=== PATIENT | female | born 1985 | race Caucasian/White ===

== ENCOUNTER 2017-08-14 18:02 | Inpatient (IN) | payer BC ==
[~2017-08-14 18:02] MED LIST: Bupivacaine 0.25% HCL 30 ML VIAL ONE
[2017-08-14 18:40] VITALS: BMI 27.1
[2017-08-14] MEDS ORDERED: Promethazine HCl 25 MG/ML VIAL IM PRN (18:59)
[2017-08-14] MEDS ORDERED: Lidocaine 1% (PF) 30 ML VIAL SC PRN (18:59)
[2017-08-14] MEDS ORDERED: Ibuprofen 800 MG TAB PO PRN (18:59)
[2017-08-14] MEDS ORDERED: HYDROcodone/Acetaminophen 5/325 mg Tablet PO PRN ×2 (18:59)
--- NOTE | 2017-08-14 19:02 | PDOC.EVN ---
Event Note - Event Note Event Note: @1900: Asked to put in orders for L&D admit by Dr Resendiz. Sol Resendiz will manage intrapartum care.
[2017-08-14 20:24] LABS: Hematocrit 38.2 % (36.0-47.0); Mean Platelet Volume 9.7 fL (7.4-10.4); Red Blood Cell (RBC) Count 4.25 mill/uL (4.20-5.40); White Blood Cell (WBC) Count 10.5 thou/uL (4.8-10.8)
[2017-08-15] MEDS: Lactated Ringer's 1,000 ML IV SCH ×3 (02:14→13:54)
[2017-08-15] MEDS ORDERED: Fentanyl 4 mcg/Marc 0.1% Cadd 100 ML ONE (02:16)
[2017-08-15] MEDS ORDERED: diphenhydrAMINE 50 MG/ML VIAL IVP PRN (03:04)
[2017-08-15] MEDS ORDERED: ePHEDrine/0.9% NaCl/PF SYRINGE 50 mg/10 ml SLOW IVP PRN (03:04)
[2017-08-15] MEDS ORDERED: Eucerin (Mineral Oil/Petrolatum,White) 30 gm Jar TOP PRN (03:04)
[2017-08-15] MEDS ORDERED: Lactated Ringer's 500 ML IV PRN (03:04)
[2017-08-15] MEDS ORDERED: Ondansetron HCl/PF 4 MG/2 ML Vial IVP PRN ×2 (03:04→15:19)
[2017-08-15] MEDS ORDERED: Naloxone HCl 0.4 mg/ml Vial IVP PRN ×2 (03:04)
[2017-08-15] MEDS ORDERED: Promethazine HCl 25 MG/ML VIAL IM PRN (03:04)
[2017-08-15] MEDS ORDERED: Acetaminophen 325 MG TAB PO PRN (03:04)
[2017-08-15] MEDS ORDERED: Communication Order-Pharmacy FS SCH (03:15)
[2017-08-15] MEDS: Fentanyl 4mcg/Marcaine 0.1% Cassette 100 ML EPIDURAL SCH ×2 (03:34→10:41)
[2017-08-15] MEDS ORDERED: LR 500 ML/Oxytocin 10 units 500 ML ONE (05:50)
[2017-08-15] MEDS ORDERED: NS w/ Oxytocin 10 units 500 ML IVPB SCH (06:15)
[2017-08-15] MEDS ORDERED: LR 500 ML/Oxytocin 10 units 500 ML IVPB SCH (06:15)
[2017-08-15] MEDS: LR / Pitocin 40 units/1000 ml 1,000 ML IV PRN ×2 (11:40→12:28)
[2017-08-15] MEDS ORDERED: Milk Of Magnesia 30 ML UDCUP PO PRN (15:19)
[2017-08-15] MEDS ORDERED: Benzocaine/Menthol 20-0.5% 60 ML CAN TOP PRN (15:19)
[2017-08-15] MEDS ORDERED: Bisacodyl 10 MG SUPP PR PRN (15:19)
[2017-08-15] MEDS ORDERED: LR / Pitocin 40 units/1000 ml 1,000 ML IV SCH (15:19)
[2017-08-15] MEDS ORDERED: Preparation H Ointment 28 GM TUBE PR PRN (15:19)
[2017-08-15] MEDS ORDERED: Lanolin Ointment 7 GM TUBE TOP PRN (15:19)
[2017-08-15] MEDS ORDERED: diphenhydrAMINE 25 MG CAP PO PRN (15:19)
[2017-08-15] MEDS: Docusate (Surfak) 240 MG CAP PO SCH ×2 (16:30→20:50)
[2017-08-15] MEDS: Ferrous Sulfate 325 MG TAB PO SCH ×2 (16:30→16:52)
[2017-08-15] MEDS: Ibuprofen 800 MG TAB PO SCH ×2 (16:30→20:50)
[2017-08-15] MEDS: Prenatal Vitamin 1 TAB PO SCH (16:31)
[2017-08-16] MEDS: Ibuprofen 800 MG TAB PO SCH ×3 (05:24→20:50)
[2017-08-16] MEDS: Docusate (Surfak) 240 MG CAP PO SCH ×2 (10:00→20:50)
[2017-08-16] MEDS: Prenatal Vitamin 1 TAB PO SCH (10:00)
[2017-08-16] MEDS: Ferrous Sulfate 325 MG TAB PO SCH ×2 (10:00→18:00)
[2017-08-16] MEDS ORDERED: HYDROcodone/Acetaminophen 5/325 mg Tablet PO PRN (15:19)
[2017-08-16] MEDS ORDERED: Acetaminophen/Codeine 30-300mg Tablet PO PRN (15:19)
[2017-08-17] MEDS: Ibuprofen 800 MG TAB PO SCH ×2 (06:18→12:59)
[2017-08-17] MEDS: Ferrous Sulfate 325 MG TAB PO SCH (09:49)
[2017-08-17] MEDS: Prenatal Vitamin 1 TAB PO SCH (09:50)
[2017-08-17] MEDS: Docusate (Surfak) 240 MG CAP PO SCH (09:50)
[2017-08-17 09:58] VITALS: BP 111/78; TEMP 97.8
== END 2017-08-17 13:10 | disposition home or self-care (01) | DRG 775 ==
LOC: L&D/OP 18:02 → L&D 20:14 → 3SW 08-15 15:20
PROVIDERS: ADMIT Family Medicine; ATTEND Family Medicine
PROC: 10D07Z6 Extraction of Products of Conception, Vacuum, Via Natural or Artificial Opening (ICD-10-PCS; principal; 2017-08-15)
PROC: 0W8NXZZ Division of Female Perineum, External Approach (ICD-10-PCS; 2017-08-15)
DX: O48.0 Post-term pregnancy (principal); O63.1 Prolonged second stage (of labor); O75.81 Maternal exhaustion complicating labor and delivery; Z37.0 Single live birth; Z3A.41 41 weeks gestation of pregnancy
CPT/HCPCS: 51702; 85027; 86780; 87340; 87389; 99281; J0595; J2001; J7120; S0020